=== PATIENT | female | born 1990 | race Caucasian/White ===

== ENCOUNTER 2017-02-24 17:17 | Outpatient (CLI) | payer OTHER ==
[~2017-02-24] VITALS: Ht 152.4 cm; Wt 70.2 kg
[~2017-02-24 17:17] MED LIST: PREN1TAB62 PO
[2017-02-24 17:34] VITALS: Ht 152.4 cm; Wt 70.2 kg
[2017-02-24 17:35] VITALS: BP 121/67; PULSE 81; RESP 18
--- NOTE | 2017-02-24 18:41 | RADRPT ---
PROCEDURE: OB ultrasound CLINICAL INDICATION: Decreased movement TECHNIQUE: Multiple transverse and longitudinal OB images of the pelvis were obtained. The images were reviewed on a high-resolution PACS workstation. COMPARISON: None FINDINGS: A single live intrauterine is seen. The presentation is vertex. The placenta is grade 1 a nd fundal in location. No evidence of placenta abruption or previa is seen. The heart rate is 165 beats per minute. The amniotic fluid index is 20.5 cm. movement 2 tone 2 breathing 2 Amniotic fluid 2 IMPRESSION: Biophysical profile of 12/30. RPTAT: HPNM Physician Torey Date Time Electronically viewed and signed by Physician Torey on 02/24/2017 18:41 /
--- NOTE | 2017-02-24 20:09 | TRIAGE ---
OB Triage Datetime Report Generated by CPN: 02/24/2017 20:09 Datetime: 02/24/2017 18:23 Heart Rate FHR Baseline Rate: 135 Monitor Mode: External US Variability: Moderate 6-25 bpm Accelerations: 15X15 Decelerations: None Category: Category I Datetime: 02/24/2017 17:39 Assessment Type: Triage Maternal Assessment Level of Consciousness: Fully Conscious DTR's/Clonus: DTRs 2+; No Clonus Headache: Denies Blurred Vision: No Respiratory Effort: Unlabored; Regular Rhythm; Equal Expansion Breath Sounds, Left: Clear and Equal Breath Sounds, Right: Clear and Equal Nausea/Vomiting: Denies RUQ Epigastric Pain: Denies Lower Extremities Edema: None Degree: None Upper Extremities Edema: None Degree: None Facial Edema: None Fall Risk Assessment History of Falling: (0) No Secondary Diagnosis: (0) No Ambulatory Aid: (0) Bedrest/Nurse Assist IV Therapy: (0) No Gait: (0) Normal/Bedrest/Immobile Mental Status: (0) Oriented to Own Ability Fall Score: 0 Fall Risk Score Definition: No Risk: No action required Datetime: 02/24/2017 17:37 Time of Arrival: 02/24/2017 17:10 EGA: 32.1 Arrived By: Ambulatory Arrived From: Home Chief Complaint: DECREASED MOVEMRNT Movement: Present Contractions: Denies/Absent Rupture of Membranes: Denies Vaginal Bleeding: None Vaginal Discharge: Denies Recent Sexual Intercouse: Denies Abdominal Trauma: Not Applicable Patient Complaints: None Time Provider Notified: 02/24/2017 18:05 Provider Notified: DR. DEL CID Initial Plan: SIENAT, DONTE
--- NOTE | 2017-02-25 09:29 | CONS ---
Date/Time of Note Date/Time of Note DATE: 02/25/17 TIME: 09:07 Consultation Date/Type/Reason Admit Date/Time Ob triage consult. This patient is a 26 yol with estimated date of confinement on 04/20/2017 , which makes her 32 weeks . Came to Ob high complaining of low movements for few hours. On examination she is a well developed ,well nourished patient Her general vital signs are basically WNL with blood presser of 121/67, pulse rate of 81, respiration rate of 18,and temperature of 98.7. Abdomen is soft very few contractions. heart tone is normal with good vzribility and occasional acceleration, no decells. Constitutional: No chills, No diaphoresis, No disoriented, No febrile, No improved, No no complaints, No other, No poor po, No requiring IVF, No requiring O2 Eyes: No discharge, No no complaints, No other, No pain, No redness, No visual change ENT: No bleeding, No congestion, No discharge, No dysphagia, No no complaints, No other, No pain, No sore throat Respiratory: No cough, No no complaints, No other, No pain, No pleuritic pain, No shortness of breath, No sputum, No wheezing Cardiovascular: No chest pain, No edema, No lightheadedness, No no complaints, No orthopenea, No other, No palpitations, No paroxysmal nocturnal dyspnea Gastrointestinal: No blood, No constipation, No decreased appetite, No diarrhea , No flatus, No nausea, No no complaints, No other, No pain, No passing stool, No vomiting Genitourinary: other (pelvic exam was not performed dut to the fact that she was not in labor.), No bleeding, No discharge, No dysuria, No flank pain, No hematuria, No no complaints Musculoskeletal: No back pain, No bone/joint pain, No neck pain, No no complaints, No other, No restricted range of motion, No swelling Skin: No bruising, No erythema, No laceration, No no complaints, No other, No pruritis, No rash, No skin lesions Neurologic: No confusion, No dizziness, No focal-weakness, No headache, No no complaints, No other, No seizure, No syncope Immunologic: No immunodeficiency, No no complaints, No other, No pruritis, No rhinitis, No urticaria Additional Comments We did an ultrasound study ; the report was: A single live intrauterine is seen. The presentation is vertex. The placenta is grade 1 and fundal in location. No evidence of placenta abruption or previa is seen. The heart rate is 165 beats per minute. The amniotic fluid index is 20.5 cm. Biophysical profile of 12/30. Disposition: with these normal finding patient was discharged home with recommendation to and do kick count and return to triage in case of vaginal bleeding ,labor or low movements. Exam/Review of Systems Vital Signs Vitals Vital Signs Date Time Temp Pulse Resp B/P Pulse Ox O2 Delivery O2 Flow Rate FiO2 02/24/17 17:35 98.7 81 18 121/67 SULMA TRIPP MD Feb 25, 2017 09:21
== END 2017-02-24 19:33 | disposition home or self-care (01) ==
LOC: OBT 17:17 → L-D 17:18 → OBT 19:33
PROVIDERS: ATTEND Obstetrics & Gynecology
DX: O36.8130 Decreased fetal movements, third trimester, not applicable or unspecified (principal); Z3A.32 32 weeks gestation of pregnancy
CPT/HCPCS: 76818; Z7500; G0463

== ENCOUNTER 2017-03-03 14:14 | Outpatient (CLI) | payer OTHER ==
[~2017-03-03] VITALS: Ht 152.4 cm; Wt 70.1 kg
[2017-03-03 14:29] VITALS: BP 114/54; PULSE 102; Ht 152.4 cm; Wt 70.1 kg
--- NOTE | 2017-03-03 15:04 | RADRPT ---
PROCEDURE: US OB biophysical profile. CLINICAL INDICATION: Decreased movements. Gestational diabetes. TECHNIQUE: Multiple sonographic images of the pelvis were obtained. The images were reviewed on a PACS workstation. COMPARISON: 02/24/2017 FINDINGS: There is a viable intrauterine gestation. There is a normal amount of amniotic fluid with an JESSIE = 16.4 cm. Cardiac activity is present with 144 beats per minute. The placenta is fundal. No evidence of placenta previa or abruption. Biophysical profile: movement 2/2 tone 2/2. breathing 2/2 JESSIE 2/2 Total 12/30 IMPRESSION: Normal biophysical profile. Estimated gestational age: 33 weeks and 1 day RPTAT:AAJJ Physician Bev Date Time Electronically viewed and signed by Physician Bev on 03/03/2017 15:03 /
--- NOTE | 2017-03-03 16:23 | CONS ---
Date/Time of Note Date/Time of Note DATE: 03/03/17 TIME: 16:18 Consultation Date/Type/Reason Admit Date/Time March 03, 2017 OB triage consult This patient is a 26 years old 2 para 1 with estimated date of confinement of 04/20/2017 which makes her 33 weeks and 1 day today. She developed gestational diabetes mellitus during this and came in complaining of low movement . She came here for monitoring of her baby's condition On general examination her vital signs appears to be within normal limits with blood pressure 114/54, pulse rate of 102, respiration 18 temperature 98.8,,. Her abdomen is soft ,very rare contractions fetus appears to be in vertex presentation, heart tone is normal. The tracing is reactive with good reactivity and accelerations no decelerations. Laboratory Tests Test 03/03/17 15:20 Bedside Glucose 96mg/dL Constitutional: No chills, No diaphoresis, No disoriented, No febrile, No improved, No no complaints, No other, No poor po, No requiring IVF, No requiring O2 Eyes: No discharge, No no complaints, No other, No pain, No redness, No visual change ENT: No bleeding, No congestion, No discharge, No dysphagia, No no complaints, No other, No pain, No sore throat Respiratory: No cough, No no complaints, No other, No pain, No pleuritic pain, No shortness of breath, No sputum, No wheezing Cardiovascular: No chest pain, No edema, No lightheadedness, No no complaints, No orthopenea, No other, No palpitations, No paroxysmal nocturnal dyspnea Gastrointestinal: No blood, No constipation, No decreased appetite, No diarrhea , No flatus, No nausea, No no complaints, No other, No pain, No passing stool, No vomiting Genitourinary: other (Pelvic exam was not performed due to the fact that she did not have any contractions), No bleeding, No discharge, No dysuria, No flank pain, No hematuria, No no complaints Musculoskeletal: No back pain, No bone/joint pain, No neck pain, No no complaints, No other, No restricted range of motion, No swelling Skin: No bruising, No erythema, No laceration, No no complaints, No other, No pruritis, No rash, No skin lesions Neurologic: No confusion, No dizziness, No focal-weakness, No headache, No no complaints, No other, No seizure, No syncope Endocrine: No dry skin, No no complaints, No other, No polydypsia, No polyuria , No temp intolerance Additional Comments On further study we did a ultrasound .the report was a viable intrauterine gestation of about 33 weeks and 1 day in vertex presentation heart tones 1 44 bpm ,there was no evidence of placenta previa. Her amniotic index was reported 16.4 cm. Biophysical profile 12/30. With this positive finding patient was discharged home with instruction to do the kick count and to return to OB triage next week for further monitoring. End of dictation Social History Smoking Status: Never smoker Exam/Review of Systems Vital Signs Vitals Vital Signs Date Time Temp Pulse Resp B/P Pulse Ox O2 Delivery O2 Flow Rate FiO2 03/03/17 14:29 98.8 102 114/54 Results Results 24 hrs Laboratory Tests Test 03/03/17 15:20 Bedside Glucose 96 SULMA TRIPP MD Mar 03, 2017 16:23
--- NOTE | 2017-03-03 16:23 | TRIAGE ---
OB Triage Datetime Report Generated by CPN: 03/03/2017 16:23 Datetime: 03/03/2017 16:02 Stage of : OB Triage Datetime: 03/03/2017 15:43 Stage of : OB Triage Datetime: 03/03/2017 15:34 Stage of : OB Triage Datetime: 03/03/2017 15:33 Labor Evaluation Frequency: x1 Monitor Mode: External Duration (sec)2399: 50 Quality: Mild Pattern: Normal: <= 5 Contractions in 10 Minutes Resting Tone [place]: Relaxed Heart Rate FHR Baseline Rate: 135 Monitor Mode: External US Variability: Moderate 6-25 bpm Accelerations: 10X10 Decelerations: None Category: Category I Pain Assessment Pain Scale: 0 Pain Presence: None/Denies Pain Type: N/A Pain Goal: 3 Pain Relief Measures: Comfort Measures Datetime: 03/03/2017 15:21 Stage of : OB Triage Datetime: 03/03/2017 14:26 Stage of : OB Triage Assessment Type: Triage Maternal Assessment Level of Consciousness: Fully Conscious DTR's/Clonus: DTRs 2+; No Clonus Headache: Denies Blurred Vision: No Respiratory Effort: Unlabored; Regular Rhythm; Equal Expansion Breath Sounds, Left: Clear and Equal Breath Sounds, Right: Clear and Equal Nausea/Vomiting: Denies RUQ Epigastric Pain: Denies Facial Edema: None Temperature Route: Axillary Fall Risk Assessment History of Falling: (0) No Secondary Diagnosis: (0) No Ambulatory Aid: (0) Bedrest/Nurse Assist IV Therapy: (0) No Gait: (0) Normal/Bedrest/Immobile Mental Status: (0) Oriented to Own Ability Fall Score: 0 Fall Risk Score Definition: No Risk: No action required Monitor Mode: External Duration (sec)2399: 0 Pattern: Normal: <= 5 Contractions in 10 Minutes Resting Tone [place]: Relaxed Heart Rate FHR Baseline Rate: 145 Monitor Mode: External US Variability: Moderate 6-25 bpm Decelerations: None Pain Assessment Pain Scale: 0 Pain Presence: None/Denies Pain Type: N/A Pain Goal: 3 Pain Relief Measures: Comfort Measures Datetime: 03/03/2017 14:25 Time of Arrival: 03/03/2017 14:15 EGA: 33.1 Arrived By: Ambulatory Arrived From: Home Chief Complaint: F/U NST/BPP FOR GDM/DFM, DENIES LEAKING OF FLUID, BLEEDING OR UC'S Movement: Present Contractions: Denies/Absent Rupture of Membranes: Denies Vaginal Bleeding: None Vaginal Discharge: Denies Recent Sexual Intercouse: Denies Abdominal Trauma: Not Applicable Patient Complaints: None Time Provider Notified: 03/03/2017 15:43 Provider Notified: [email or web address] Initial Plan: MONITOR, NST/BPP Datetime: 02/24/2017 19:09 Stage of : OB Triage Datetime: 02/24/2017 17:39 Fall Score: 0 Fall Risk Score Definition: No Risk: No action required Datetime: 02/24/2017 17:37 EGA: 32.1
== END 2017-03-03 16:15 | disposition home or self-care (01) ==
LOC: L-D 14:14 → OBT 14:14
PROVIDERS: ATTEND Obstetrics & Gynecology
DX: O36.8130 Decreased fetal movements, third trimester, not applicable or unspecified (principal); O24.419 Gestational diabetes mellitus in pregnancy, unspecified control; Z3A.33 33 weeks gestation of pregnancy
CPT/HCPCS: 76818; 82962; Z7500; G0463

== ENCOUNTER 2017-03-16 14:16 | Outpatient (CLI) | payer OTHER ==
[~2017-03-16] VITALS: Ht 152.4 cm; Wt 72.3 kg
[2017-03-16 14:30] VITALS: Ht 152.4 cm; Wt 72.3 kg
[2017-03-16 14:31] VITALS: BP 100/56; RESP 16
--- NOTE | 2017-03-16 15:08 | RADRPT ---
PROCEDURE: US OB biophysical profile. CLINICAL INDICATION: evaluation TECHNIQUE: Multiple sonographic images of the pelvis were obtained. The images were reviewed on a PACS workstation. COMPARISON: Obstetrical ultrasound from 03/09/2017 FINDINGS: There is a single viable intrauterine gestation. Cardiac activity is present with 136 beats per min raúl. There is a vertex presentation. The placenta is fundal. There is no evidence of placental abruption. There is a low - normal amount of amniotic fluid with an JESSIE = 8.6 cm. Biophysical profile: movement 2/2 tone 2/2. breathing 2/2 JESSIE 2/2 Total 12/30 RPTAT: AA . IMPRESSION: Normal biophysical profile. Low - normal JESSIE of 8.6 cm, compared with an JESSIE of 10.9 cm previously. Physician Martín Date Time Electronically viewed and signed by Physician Martín on 03/16/2017 15:08 /
--- NOTE | 2017-03-16 18:19 | QN ---
Documentation Comment iup 36 weeks gdm vss nst reactive a/p iup 36 weeks gdm [facility] DEBRA ORTEGA MD Mar 16, 2017 18:19
== END 2017-03-16 16:50 | disposition home or self-care (01) ==
LOC: OBT 14:16 → L-D 14:16 → OBT 16:50
PROVIDERS: ATTEND Obstetrics & Gynecology
DX: O24.419 Gestational diabetes mellitus in pregnancy, unspecified control (principal); Z3A.36 36 weeks gestation of pregnancy
CPT/HCPCS: 76818; G0463

== ENCOUNTER 2017-03-23 14:39 | Outpatient (CLI) | payer OTHER ==
--- NOTE | 2017-03-23 15:23 | RADRPT ---
PROCEDURE: US OB biophysical profile. CLINICAL INDICATION: decreased movements TECHNIQUE: Multiple sonographic images of the pelvis were obtained. The images were reviewed on a PACS workstation. COMPARISON: US PELVIS 03/16/2017 FINDINGS: There is a single viable intrauterine gestation. Cardiac activity is present with 135 beats per min raúl. There is a vertex presentation. The placenta is fundal. There is no evidence of placental abruption. There is a normal amount of amniotic fluid with an JESSIE = 9.0 cm. Biophysical profile: movement 2/2 tone 2/2. breathing 2/2 JESISE 2/2 Total 12/30 RPTAT: AA . IMPRESSION: Normal biophysical profile. . .Solomon Carl MD, MD Date Time Electronically viewed and signed by .Solomon Carl MD, MD on 03/23/2017 15:23 .S/
--- NOTE | 2017-03-23 16:02 | TRIAGE ---
OB Triage Datetime Report Generated by CPN: 03/23/2017 16:02 Datetime: 03/23/2017 15:38 Stage of : OB Triage Datetime: 03/23/2017 15:34 Stage of : OB Triage Datetime: 03/23/2017 15:29 Stage of : OB Triage Datetime: 03/23/2017 15:16 Stage of : OB Triage Assessment Type: Triage Maternal Assessment Level of Consciousness: Fully Conscious DTR's/Clonus: DTRs 2+; No Clonus Headache: Denies Blurred Vision: No Respiratory Effort: Unlabored; Regular Rhythm; Equal Expansion Breath Sounds, Left: Clear and Equal Breath Sounds, Right: Clear and Equal Nausea/Vomiting: Denies RUQ Epigastric Pain: Denies Facial Edema: None Temperature Route: Axillary Fall Risk Assessment History of Falling: (0) No Secondary Diagnosis: (0) No Ambulatory Aid: (0) Bedrest/Nurse Assist IV Therapy: (0) No Gait: (0) Normal/Bedrest/Immobile Mental Status: (0) Oriented to Own Ability Fall Score: 0 Fall Risk Score Definition: No Risk: No action required Labor Evaluation Frequency: X1 Monitor Mode: External Duration (sec)2399: 50 Quality: Mild Pattern: Normal: <= 5 Contractions in 10 Minutes Resting Tone [place]: Relaxed Heart Rate FHR Baseline Rate: 135 Monitor Mode: External US Variability: Moderate 6-25 bpm Accelerations: 10X10 Decelerations: None Pain Assessment Pain Scale: 0 Pain Presence: None/Denies Pain Type: N/A Pain Goal: 3 Pain Relief Measures: Comfort Measures Datetime: 03/23/2017 14:54 Time of Arrival: 03/23/2017 14:30 EGA: 36.0 Arrived By: Ambulatory Chief Complaint: F/U NST FOR GDM Movement: Present Contractions: Denies/Absent Rupture of Membranes: Denies Vaginal Bleeding: None Vaginal Discharge: Denies Recent Sexual Intercouse: Denies Abdominal Trauma: Not Applicable Patient Complaints: None Time Provider Notified: 03/23/2017 15:38 Provider Notified: shamsian Initial Plan: MONITOR, BPP/JESSIE Datetime: 03/16/2017 15:30 Labor Evaluation Frequency: X1 Duration (sec)2399: 30-60 Pattern: Normal: <= 5 Contractions in 10 Minutes Resting Tone [place]: Relaxed Heart Rate FHR Baseline Rate: 135 Monitor Mode: External US Variability: Moderate 6-25 bpm Accelerations: 15X15 Decelerations: None Category: Category I Vaginal Exam Membrane Status: Intact Datetime: 03/16/2017 15:04 Comments: BACK ON MONITOR AFTER US Datetime: 03/16/2017 14:44 Comments: US AT BEDSIDE Datetime: 03/16/2017 14:36 Stage of : OB Triage Assessment Type: Triage Maternal Assessment Level of Consciousness: Fully Conscious DTR's/Clonus: DTRs 2+; No Clonus Headache: Denies Blurred Vision: No Respiratory Effort: Unlabored; Regular Rhythm; Equal Expansion Breath Sounds, Left: Clear and Equal Breath Sounds, Right: Clear and Equal Nausea/Vomiting: Denies RUQ Epigastric Pain: Denies Lower Extremities Edema: None Degree: None Upper Extremities Edema: None Degree: None Facial Edema: None Temperature Route: Oral Fall Risk Assessment History of Falling: (0) No Secondary Diagnosis: (0) No Ambulatory Aid: (0) Bedrest/Nurse Assist IV Therapy: (0) No Gait: (0) Normal/Bedrest/Immobile Mental Status: (0) Oriented to Own Ability Fall Score: 0 Fall Risk Score Definition: No Risk: No action required Labor Evaluation Frequency: 0 Monitor Mode: External Heart Rate FHR Baseline Rate: 145 Monitor Mode: External US Variability: Moderate 6-25 bpm Accelerations: 15X15 Pain Assessment Pain Scale: 0 Pain Presence: None/Denies Pain Type: N/A Datetime: 03/16/2017 14:35 Time of Arrival: 03/16/2017 14:10 EGA: 35.0 Arrived By: Ambulatory Arrived From: Dr. Gomez Chief Complaint: SENT FROM CLINIC FOR NST/ BPP FOR GDM Movement: Present Contractions: Denies/Absent Rupture of Membranes: Denies Vaginal Bleeding: None Vaginal Discharge: Denies Recent Sexual Intercouse: Denies Abdominal Trauma: Not Applicable Patient Complaints: None Time Provider Notified: 03/16/2017 16:00 Provider Notified: ROXANNA DEL CID Initial Plan: NST/ BPP Datetime: 03/09/2017 14:28 Fall Score: 0 Fall Risk Score Definition: No Risk: No action required Datetime: 03/09/2017 14:24 EGA: 34.0 Datetime: 03/03/2017 14:26 Fall Score: 0 Fall Risk Score Definition: No Risk: No action required Datetime: 03/03/2017 14:25 EGA: 33.1 Datetime: 02/24/2017 17:39 Fall Score: 0 Fall Risk Score Definition: No Risk: No action required Datetime: 02/24/2017 17:37 EGA: 32.1
--- NOTE | 2017-03-23 18:27 | QN ---
Documentation Comment iup 36 weeks gdm vss exam wnl us wnl a/p uip 36 weeks dc home gdm DEBRA ORTEGA MD Mar 23, 2017 18:27
== END 2017-03-23 15:50 | disposition home or self-care (01) ==
LOC: OBT 14:39 → L-D 14:39 → OBT 15:50
PROVIDERS: ATTEND Obstetrics & Gynecology
DX: O24.419 Gestational diabetes mellitus in pregnancy, unspecified control (principal); Z3A.36 36 weeks gestation of pregnancy
CPT/HCPCS: 76818; 82962; Z7500; G0463

== ENCOUNTER 2017-03-26 12:51 | Outpatient (CLI) | payer OTHER ==
[~2017-03-26] VITALS: Ht 152.4 cm; Wt 71.3 kg
[2017-03-26 12:58] VITALS: BP 106/60; PULSE 18; RESP 18
[2017-03-26] MEDS ORDERED: FER325 PO (13:02)
[2017-03-26 13:19] VITALS: Ht 152.4 cm; Wt 71.3 kg
--- NOTE | 2017-03-26 13:45 | RADRPT ---
PROCEDURE: OB ultrasound for biophysical profile CLINICAL INDICATION: evaluation. TECHNIQUE: Multiple sonographic images of the pelvis were obtained. Transabdominal view of the gr avid uterus are available for review. The images were reviewed on a PACS workstation. COMPARISON: 03/23/2017. FINDINGS: breathing movement = 2/2 tone = 2/2 motion = 2/2 Quantitative amniotic fluid volume = 2/2 JESSIE = 13.0 cm Single live intrauterine with cardiac activity at 137 beats per minute. There is a left lateral placenta without previa or abruption. IMPRESSION: 1. Single living intrauterine gestation in cephalic position. 2. Biophysical profile = 8/8. 3. JESSIE = 13.0 cm. RPTAT: AACC Physician Nolan Date Time Electronically viewed and signed by Physician Nolan on 03/26/2017 13:44 /
--- NOTE | 2017-03-26 14:36 | TRIAGE ---
OB Triage Datetime Report Generated by CPN: 03/26/2017 14:36 Datetime: 03/26/2017 14:29 Labor Evaluation Frequency: X2 Monitor Mode: External Duration (sec)2399: 90-120 Pattern: Normal: <= 5 Contractions in 10 Minutes Resting Tone [place]: Relaxed Contraction Comments: PT. DENIES FEELING UC'S Heart Rate FHR Baseline Rate: 140 Monitor Mode: External US Variability: Moderate 6-25 bpm Accelerations: 15X15 Decelerations: None Category: Category I Pain Assessment Pain Presence: None/Denies Datetime: 03/26/2017 14:03 Pain Assessment Pain Presence: None/Denies Datetime: 03/26/2017 13:27 Labor Evaluation Frequency: 3-4 Monitor Mode: External Duration (sec)2399: 50-80 Pattern: Normal: <= 5 Contractions in 10 Minutes Resting Tone [place]: Relaxed Heart Rate FHR Baseline Rate: 140 Monitor Mode: External US Variability: Moderate 6-25 bpm Accelerations: 15X15 Decelerations: None Category: Category I Datetime: 03/26/2017 13:11 Assessment Type: Admission Assessment Maternal Assessment Level of Consciousness: Fully Conscious DTR's/Clonus: DTRs 2+; No Clonus Headache: Denies Blurred Vision: No Respiratory Effort: Unlabored; Regular Rhythm; Equal Expansion Breath Sounds, Left: Clear and Equal Breath Sounds, Right: Clear and Equal Nausea/Vomiting: Denies RUQ Epigastric Pain: Denies Lower Extremities Edema: None Degree: None Upper Extremities Edema: None Degree: None Facial Edema: None Fall Risk Assessment History of Falling: (0) No Secondary Diagnosis: (0) No Ambulatory Aid: (0) Bedrest/Nurse Assist IV Therapy: (0) No Gait: (0) Normal/Bedrest/Immobile Mental Status: (0) Oriented to Own Ability Fall Score: 0 Fall Risk Score Definition: No Risk: No action required Datetime: 03/26/2017 13:04 Time of Arrival: 03/26/2017 12:44 EGA: 36.3 Arrived By: Ambulatory Arrived From: Home Chief Complaint: NST/BPP FOR AIDM Movement: Present Contractions: Denies/Absent Rupture of Membranes: Denies Vaginal Bleeding: None Vaginal Discharge: Denies Recent Sexual Intercouse: Denies Abdominal Trauma: Not Applicable Patient Complaints: None Time Provider Notified: 03/26/2017 13:59 Provider Notified: DR. DEL CID Initial Plan: TOCO/US, BPP Datetime: 03/26/2017 12:53 Pain Assessment Pain Presence: None/Denies Datetime: 03/23/2017 15:16 Fall Score: 0 Fall Risk Score Definition: No Risk: No action required Datetime: 03/23/2017 14:54 EGA: 36.0 Datetime: 03/16/2017 14:36 Fall Score: 0 Fall Risk Score Definition: No Risk: No action required Datetime: 03/16/2017 14:35 EGA: 35.0 Datetime: 03/09/2017 14:28 Fall Score: 0 Fall Risk Score Definition: No Risk: No action required Datetime: 03/09/2017 14:24 EGA: 34.0 Datetime: 03/03/2017 14:26 Fall Score: 0 Fall Risk Score Definition: No Risk: No action required Datetime: 03/03/2017 14:25 EGA: 33.1 Datetime: 02/24/2017 17:39 Fall Score: 0 Fall Risk Score Definition: No Risk: No action required Datetime: 02/24/2017 17:37 EGA: 32.1
--- NOTE | 2017-03-26 14:44 | CONS ---
Date/Time of Note Date/Time of Note DATE: 03/26/17 TIME: 14:37 Consultation Date/Type/Reason Admit Date/Time March 26, 2017 OB triage consult This patient is a 26 years old 2 para 1 with estimated date of confinement of April 20, 2017 which makes her 36 weeks and 3 days now . She came to triage due to A1 gestational diabetes mellitus during this and for monitoring . NST and biophysical profile. On examination she is a well-developed well-nourished patient near- term. Her general vital signs are within normal limit, with blood pressure of 106/60, pulse rate of 96, respiration of 18,, temperature 98.5. On examination her abdomen is soft, extremely rare contraction, heart tone is normal the tracing has good variability and acceleration Constitutional: No chills, No diaphoresis, No disoriented, No febrile, No improved, No no complaints, No other, No poor po, No requiring IVF, No requiring O2 Eyes: No discharge, No no complaints, No other, No pain, No redness, No visual change ENT: No bleeding, No congestion, No discharge, No dysphagia, No no complaints, No other, No pain, No sore throat Respiratory: No cough, No no complaints, No other, No pain, No pleuritic pain, No shortness of breath, No sputum, No wheezing Cardiovascular: No chest pain, No edema, No lightheadedness, No no complaints, No orthopenea, No other, No palpitations, No paroxysmal nocturnal dyspnea Gastrointestinal: other, No blood, No constipation, No decreased appetite, No diarrhea, No flatus, No nausea, No no complaints, No pain, No passing stool, No vomiting Genitourinary: other (Pelvic examination was not performed due to the fact that she did not have any contractions at this time), No bleeding, No discharge, No dysuria, No flank pain, No hematuria, No no complaints Musculoskeletal: No back pain, No bone/joint pain, No neck pain, No no complaints, No other, No restricted range of motion, No swelling Skin: No bruising, No erythema, No laceration, No no complaints, No other, No pruritis, No rash, No skin lesions Neurologic: other (Knee-jerk reflex within normal limits), No confusion, No dizziness, No focal-weakness, No headache, No no complaints , No seizure, No syncope Endocrine: No dry skin, No no complaints, No other, No polydypsia, No polyuria , No temp intolerance Lymphatic: No adenopathy, No lymphadema, No no complaints, No other, No tender nodes Additional Comments On ultrasound study ;the report is single live intrauterine with cardiac activity of 137 bpm lateral placenta vertex presentation biophysical profile was reported 12/30 with amniotic fluid index of 13.0. .The patient was informed of the results of the ultrasound And she was advised to return in about a week based on recommendation of her physician for the repeat of the monitoring studies. Social History Smoking Status: Never smoker Exam/Review of Systems Vital Signs Vitals Vital Signs Date Time Temp Pulse Resp B/P Pulse Ox O2 Delivery O2 Flow Rate FiO2 03/26/17 12:58 98.5 18 18 106/60 Room Air SULMA TRIPP MD Mar 26, 2017 14:44
== END 2017-03-26 14:55 | disposition home or self-care (01) ==
LOC: OBT 12:51 → L-D 12:52 → OBT 14:55
PROVIDERS: ATTEND Obstetrics & Gynecology
DX: O24.419 Gestational diabetes mellitus in pregnancy, unspecified control (principal); Z3A.36 36 weeks gestation of pregnancy
CPT/HCPCS: 76818

== ENCOUNTER 2017-04-02 15:40 | Outpatient (CLI) | payer OTHER ==
[~2017-04-02] VITALS: Ht 152.4 cm; Wt 71.1 kg
[~2017-04-02 15:40] MED LIST changes: +FER325 PO
[2017-04-02 15:54] VITALS: BP 110/65; PULSE 86; RESP 18; Ht 152.4 cm; Wt 71.1 kg
--- NOTE | 2017-04-02 16:48 | RADRPT ---
PROCEDURE: US OB biophysical profile. CLINICAL INDICATION: Decreased movements TECHNIQUE: Multiple sonographic images of the pelvis were obtained. The images were reviewed on a PACS workstation. COMPARISON: 03/26/2017 FINDINGS: There is a viable intrauterine gestation. There is a normal amount of amniotic fluid with an JESSIE = 12.4 cm. Cardiac activity is present with 169 beats per minute. The placenta is fundal. No evidence of placenta previa or abruption. Biophysical profile: movement 2/2 tone 2/2. breathing 2/2 JESSIE 2/2 Total 12/30 IMPRESSION: Normal biophysical profile. Estimated gestational age: 37 weeks and 3 days RPTAT:AAJJ Physician Bev Date Time Electronically viewed and signed by Physician Bev on 04/02/2017 16:48 /
--- NOTE | 2017-04-02 18:22 | CONS ---
Date/Time of Note Date/Time of Note DATE: 04/02/17 TIME: 18:16 Consultation Date/Type/Reason Admit Date/Time .April 02, 2017 OB consult. This patient is a 26 years old 2 para 1 with estimated date of confinement of April 20, 2017 which makes her 37 weeks and 3 days now. She has gestational diabetes mellitus and came here on a follow-up for monitoring and evaluation of this . On examination today her general vital signs are normal with blood pressure 110/ 65, pulse rate of 86, respirations 17, and temperature 97.5. 24 HR Interval Summary Free Text/Dictation . 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 End of dictation Exam/Review of Systems Vital Signs Vitals Vital Signs Date Time Temp Pulse Resp B/P Pulse Ox O2 Delivery O2 Flow Rate FiO2 04/02/17 15:54 97.5 86 18 110/65 Room Air SULMA TRIPP MD Apr 02, 2017 18:22
--- NOTE | 2017-04-02 18:30 | TRIAGE ---
OB Triage Datetime Report Generated by CPN: 04/02/2017 18:30 Datetime: 04/02/2017 17:04 Stage of : OB Triage Datetime: 04/02/2017 16:59 Labor Evaluation Frequency: occ Monitor Mode: External Duration (sec)2399: 60 Quality: Mild Pattern: Normal: <= 5 Contractions in 10 Minutes Resting Tone [place]: Relaxed Heart Rate FHR Baseline Rate: 140 Monitor Mode: External US Variability: Moderate 6-25 bpm Accelerations: 15X15 Decelerations: None Pain Assessment Pain Scale: 0 Pain Presence: None/Denies Pain Type: N/A Datetime: 04/02/2017 16:14 Labor Evaluation Frequency: 70-80 Monitor Mode: External Quality: Mild Pattern: Normal: <= 5 Contractions in 10 Minutes Resting Tone [place]: Relaxed Heart Rate FHR Baseline Rate: 140 Monitor Mode: External US Pain Assessment Pain Scale: 0 Pain Presence: None/Denies Pain Type: N/A Datetime: 04/02/2017 15:55 Assessment Type: Triage Maternal Assessment Level of Consciousness: Fully Conscious DTR's/Clonus: DTRs 2+; No Clonus Headache: Denies Blurred Vision: No Respiratory Effort: Unlabored; Regular Rhythm; Equal Expansion Breath Sounds, Left: Clear and Equal Breath Sounds, Right: Clear and Equal Nausea/Vomiting: Denies RUQ Epigastric Pain: Denies Lower Extremities Edema: None Degree: None Upper Extremities Edema: None Degree: None Facial Edema: None Fall Risk Assessment History of Falling: (0) No Secondary Diagnosis: (0) No Ambulatory Aid: (0) Bedrest/Nurse Assist IV Therapy: (0) No Gait: (0) Normal/Bedrest/Immobile Mental Status: (0) Oriented to Own Ability Fall Score: 0 Fall Risk Score Definition: No Risk: No action required Datetime: 04/02/2017 15:42 Time of Arrival: 04/02/2017 15:30 EGA: 37.3 Arrived By: Ambulatory Arrived From: Home Movement: Present Contractions: Denies/Absent Rupture of Membranes: Denies Vaginal Bleeding: None Vaginal Discharge: Denies Recent Sexual Intercouse: Denies Abdominal Trauma: Not Applicable Patient Complaints: None Time Provider Notified: 04/02/2017 17:02 Provider Notified: ABUSLEME Initial Plan: NST/BPP Datetime: 03/26/2017 13:11 Fall Score: 0 Fall Risk Score Definition: No Risk: No action required Datetime: 03/26/2017 13:04 EGA: 36.3 Datetime: 03/23/2017 15:16 Fall Score: 0 Fall Risk Score Definition: No Risk: No action required Datetime: 03/23/2017 14:54 EGA: 36.0 Datetime: 03/16/2017 14:36 Fall Score: 0 Fall Risk Score Definition: No Risk: No action required Datetime: 03/16/2017 14:35 EGA: 35.0 Datetime: 03/09/2017 14:28 Fall Score: 0 Fall Risk Score Definition: No Risk: No action required Datetime: 03/09/2017 14:24 EGA: 34.0 Datetime: 03/03/2017 14:26 Fall Score: 0 Fall Risk Score Definition: No Risk: No action required Datetime: 03/03/2017 14:25 EGA: 33.1 Datetime: 02/24/2017 17:39 Fall Score: 0 Fall Risk Score Definition: No Risk: No action required Datetime: 02/24/2017 17:37 EGA: 32.1
== END 2017-04-02 18:00 | disposition home or self-care (01) ==
LOC: L-D 15:40 → OBT 15:40
PROVIDERS: ATTEND Obstetrics & Gynecology
DX: O24.419 Gestational diabetes mellitus in pregnancy, unspecified control (principal); Z3A.37 37 weeks gestation of pregnancy
CPT/HCPCS: 76818; Z7500; G0463

== ENCOUNTER 2017-04-09 09:19 | Outpatient (CLI) | payer OTHER ==
[~2017-04-09] VITALS: Ht 152.4 cm; Wt 71.0 kg
[2017-04-09 09:36] VITALS: Ht 152.4 cm; Wt 71.0 kg
[2017-04-09 09:37] VITALS: BP 108/60; PULSE 73; RESP 18
--- NOTE | 2017-04-09 10:31 | RADRPT ---
PROCEDURE: US OB biophysical profile. CLINICAL INDICATION: decreased movements, GD TECHNIQUE: Multiple sonographic images of the pelvis were obtained. The images were reviewed on a PACS workstation. COMPARISON: 04/02/17 FINDINGS: There is a single viable intrauterine gestation. Cardiac activity is present with 142 beats per min [place]. There is a vertex presentation. The placenta is fundal left. There is no evidence of placental abruption. There is a normal amount of amniotic fluid with an JESSIE = 13.7 cm. Biophysical profile: movement 2/2 tone 2/2. breathing 2/2 JESSIE 2/2 Total 12/30 RPTAT: AA . IMPRESSION: Normal biophysical profile. . .Solomon Carl MD, MD Date Time Electronically viewed and signed by .Solomon Carl MD, MD on 04/09/2017 10:30 .S/
--- NOTE | 2017-04-09 10:59 | TRIAGE ---
OB Triage Datetime Report Generated by CPN: 04/09/2017 10:59 Datetime: 04/09/2017 09:49 Stage of : OB Triage Maternal Assessment Level of Consciousness: Fully Conscious Labor Evaluation Frequency: 2UC Monitor Mode: External Duration (sec)2399: 50-90 Quality: Mild Resting Tone [place]: Relaxed Heart Rate FHR Baseline Rate: 145 Monitor Mode: External US Variability: Moderate 6-25 bpm Accelerations: 15X15 Decelerations: None Category: Category I Pain Assessment Pain Scale: 0 Pain Goal: 3 Vaginal Exam Membrane Status: Intact Vaginal Bleeding: None Datetime: 04/09/2017 09:48 Bedside Blood Glucose: 89 Datetime: 04/09/2017 09:33 Assessment Type: Triage Maternal Assessment Level of Consciousness: Fully Conscious DTR's/Clonus: DTRs 2+; No Clonus Headache: Denies Blurred Vision: No Respiratory Effort: Unlabored; Regular Rhythm; Equal Expansion Breath Sounds, Left: Clear and Equal Breath Sounds, Right: Clear and Equal Nausea/Vomiting: Denies RUQ Epigastric Pain: Denies Lower Extremities Edema: None Degree: None Upper Extremities Edema: None Degree: None Facial Edema: None Fall Risk Assessment History of Falling: (0) No Secondary Diagnosis: (0) No Ambulatory Aid: (0) Bedrest/Nurse Assist IV Therapy: (0) No Gait: (0) Normal/Bedrest/Immobile Mental Status: (0) Oriented to Own Ability Fall Score: 0 Fall Risk Score Definition: No Risk: No action required Datetime: 04/09/2017 09:32 Time of Arrival: 04/09/2017 09:17 EGA: 38.3 Arrived By: Ambulatory Arrived From: Home Chief Complaint: PT HERE FOR NST/BPP FOR A1DM Movement: Present Contractions: Denies/Absent Rupture of Membranes: Denies Vaginal Bleeding: None Vaginal Discharge: Denies Recent Sexual Intercouse: Denies Abdominal Trauma: Not Applicable Patient Complaints: None Time Provider Notified: 04/09/2017 10:50 Provider Notified: ABUSLEME Initial Plan: NST/BPP Datetime: 04/09/2017 09:27 Monitor Mode: External Monitor Mode: External US Datetime: 04/02/2017 17:30 Stage of : OB Triage Datetime: 04/02/2017 15:55 Fall Score: 0 Fall Risk Score Definition: No Risk: No action required Datetime: 04/02/2017 15:42 EGA: 37.3 Datetime: 03/26/2017 13:11 Fall Score: 0 Fall Risk Score Definition: No Risk: No action required Datetime: 03/26/2017 13:04 EGA: 36.3 Datetime: 03/23/2017 15:16 Fall Score: 0 Fall Risk Score Definition: No Risk: No action required Datetime: 03/23/2017 14:54 EGA: 36.0 Datetime: 03/16/2017 14:36 Fall Score: 0 Fall Risk Score Definition: No Risk: No action required Datetime: 03/16/2017 14:35 EGA: 35.0 Datetime: 03/09/2017 14:28 Fall Score: 0 Fall Risk Score Definition: No Risk: No action required Datetime: 03/09/2017 14:24 EGA: 34.0 Datetime: 03/03/2017 14:26 Fall Score: 0 Fall Risk Score Definition: No Risk: No action required Datetime: 03/03/2017 14:25 EGA: 33.1 Datetime: 02/24/2017 17:39 Fall Score: 0 Fall Risk Score Definition: No Risk: No action required Datetime: 02/24/2017 17:37 EGA: 32.1
--- NOTE | 2017-04-09 11:11 | CONS ---
Date/Time of Note Date/Time of Note DATE: 04/09/17 TIME: 11:02 Consultation Date/Type/Reason Admit Date/Time April 09, 2017 OB triage follow-up consult This patient is a 26 years old 2 para 1 with estimated date of confinement of April 20, 2017 which makes her 38 weeks and 3 days now. She has gestational diabetes mellitus and came here on a follow-up for monitoring and evaluation of this . On examination today her general vital signs are normal with blood pressure 108/ 60, pulse rate of 73, respirations 18, and temperature 98. . Under heart rate monitoring tracing is reactive with moderate variability occasional acceleration no evidence of heart decelerations. Abdomen is soft rare contraction. Vertex presentation Initial Consult Date Reason for Consultation Laboratory Tests Test 04/09/17 09:48 Bedside Glucose 89mg/dL 24 HR Interval Summary Free Text/Dictation . On ultrasound study the report is a single viable intrauterine gestation with heart tone of 1 42 bpm in vertex presentation placenta was fundal left and there was no evidence of placental abruption her amniotic fluid index was reported to 13.7 cm her biophysical profile was 8/8 With these normal finding patient was discharged she will be admitted on this coming Thursday for induction of her labor. She was advised to do the kick count at home and return to the triage if any evidence of labor vaginal bleeding or low movement other than that we will see her on Thursday for induction of labor. End of dictation . Exam/Review of Systems Vital Signs Vitals Vital Signs Date Time Temp Pulse Resp B/P Pulse Ox O2 Delivery O2 Flow Rate FiO2 04/09/17 09:37 98.1 73 18 108/60 98 Room Air Results Results 24 hrs Laboratory Tests Test 04/09/17 09:48 Bedside Glucose 89 SULMA TRIPP MD Apr 09, 2017 11:11
== END 2017-04-09 11:05 | disposition home or self-care (01) ==
LOC: OBT 09:19 → L-D 09:19 → OBT 11:05
PROVIDERS: ATTEND Obstetrics & Gynecology
DX: O24.419 Gestational diabetes mellitus in pregnancy, unspecified control (principal); Z3A.38 38 weeks gestation of pregnancy
CPT/HCPCS: 76818; 82962; Z7500; G0463

== ENCOUNTER 2017-04-13 09:30 | Inpatient (IN) | payer OTHER ==
[~2017-04-13] VITALS: Ht 152.4 cm; Wt 71.0 kg
[2017-04-13 10:44] VITALS: Ht 152.4 cm; Wt 71.0 kg
[2017-04-13 10:45] VITALS: BP 119/59
[2017-04-13] MEDS ORDERED: MISOPROSTOL 200 MCG TAB PR PRN (11:00)
[2017-04-13] MEDS ORDERED: LACTATED RINGER'S 1,000 ML IV PRN (11:00)
[2017-04-13] MEDS ORDERED: CARBOPROST 250 MCG INJ IM PRN (11:00)
[2017-04-13] MEDS ORDERED: BUTORPHANOL 2 MG INJ IV PRN (11:00)
[2017-04-13] MEDS ORDERED: AMPICILLIN 2 GM/NS (PMX) 100 ML IV ONE (11:00)
[2017-04-13] MEDS ORDERED: LIDOCAINE 1% (MPF) 30 ML INJ INJ PRN (11:00)
[2017-04-13] MEDS ORDERED: METHYLERGONOVINE 0.2 MG INJ IM PRN (11:00)
[2017-04-13] MEDS ORDERED: OXYTOCIN 30 UNITS/LR 500 ML IV PRN (11:00)
[2017-04-13] MEDS ORDERED: OXYTOCIN 30 UNITS/LR 500 ML IV SCH ×3 (11:00→21:30)
[2017-04-13] MEDS: LACTATED RINGER'S 1,000 ML IV SCH ×2 (11:13→23:18)
[2017-04-13 11:39] LABS: BASOPHILS % 0.3 % (0.0-2.0); EOSINOPHILS # 0.1 10^3/ul (0.0-0.5); EOSINOPHILS % 1.6 % (0.0-7.0); HEMATOCRIT 37.8 % (37.0-47.0); HEMOGLOBIN 12.8 g/dl (12.0-16.0); LYMPHOCYTES # 1.6 10^3/ul (0.8-2.9); LYMPHOCYTES % 21.3 % (15.0-51.0); MEAN CORPUSCULAR HEMOGLOBIN 31.5 pg (29.0-33.0); MEAN CORPUSCULAR HGB CONC 33.9 g/dl (32.0-37.0); MEAN CORPUSCULAR VOLUME 93.1 fl (82.0-101.0); MEAN PLATELET VOLUME 10.8 fl (7.4-10.4); MONOCYTE # 0.5 10^3/ul (0.3-0.9); NEUTROPHIL # 5.1 10^3/ul (1.6-7.5); PLATELET COUNT 243 10^3/UL (140-415); RED BLOOD COUNT 4.06 10^6/ul (4.20-5.40); RED CELL DISTRIBUTION WIDTH 13.4 % (11.5-14.5); WHITE BLOOD COUNT 7.4 10^3/ul (4.8-10.8)
[2017-04-13] MEDS ORDERED: DEXTROSE 5% 1,000 ML IV PRN (12:00)
[2017-04-13] MEDS ORDERED: DINOPROSTONE 10 MG VAG SUPP VAG ONE (12:00)
[2017-04-13 12:13] LABS: INR 1.05; PROTIME 13.7 Sec (12.2-14.2); PT RATIO 1.1
[2017-04-13 12:14] LABS: PARTIAL THROMBOPLASTIN TIME 37.1 Sec (25.0-35.0)
[2017-04-13] MEDS: AMPICILLIN 1 GM/NS (PMX) 50 ML IVPB SCH ×3 (15:43→23:46)
[2017-04-13] MEDS ORDERED: EPHEDrine SULFATE 50 MG/5 ML SYG IV PRN (17:00)
[2017-04-13] MEDS ORDERED: ONDANSETRON 4 MG INJ IV PRN (17:00)
[2017-04-13] MEDS ORDERED: NALOXONE (0.4 MG/ML) INJ IV PRN (17:00)
[2017-04-13] MEDS ORDERED: FENTAnyl 2MCG/ML-ROPIV 0.2% 100 ML BAG EPI SCH (17:00)
[2017-04-13] MEDS ORDERED: DIPHENHYDRAMINE 50 MG INJ IV PRN (17:00)
--- NOTE | 2017-04-13 21:28 | HP ---
Date/Time of Note Date/Time of Note DATE: 04/13/17 TIME: 21:24 OB - History Hx of Present Free Text/Dictation 39 weeks . Gestational diabetes A1 GBS positive Admitted for induction Last Menstrual Period: Jul 14, 2016 Estimated Due Date: Apr 19, 2017 : 2 Para: 1 Care: Good Care Ultrasounds: Normal mid trimester US Obstetrical Complications: Gestational Diabetes Medical Complications: None Past Family/Social History * Past Medical, Surgical, Family and Obstetric Histories reviewed from chart. Blood Type: O+ Rubella: immune RPR/VDRL: Negative GBS Status: Positive HBsAG: Negative OB Admission Exam Vital Signs Vital Signs Vital Signs Date Time Temp Pulse Resp B/P Pulse Ox O2 Delivery O2 Flow Rate FiO2 04/13/17 10:45 98.0 119/59 Physical Exam HEENT: WNL Heart: Rhythm Normal Lungs: Clear, Equal Abdomen: WNL Extremities: Normal Reflexes: Normal Cervical Dilatation: 2cm Effacement: 50% Station: -2 Membranes: Intact Accelerations: Accelerations Present Decelerations: No Decelerations Varibility: Moderate Contractions on Admission: 6-10 Minutes Apart Intensity: Mild Last 72 hourBlood Glucose Bedside Glucose - 72 Hours Test 04/13/17 15:36 04/13/17 19:34 Bedside Glucose 90mg/dL (70-220) 74mg/dL (70-220) Last 72 hours Lab Results CBC & BMP 04/13/17 11:04 OB Assessment/Plan Reason for admission: group B positive strep, induction of labor Induction Method: per Misoprostol Protocol ESTHER DEL CID MD Apr 13, 2017 21:28
[2017-04-14] MEDS ORDERED: OXYTOCIN 30 UNITS/LR 500 ML IV SCH (00:41)
--- NOTE | 2017-04-14 00:41 | LDN ---
Date/Time of Note Date/Time of Note DATE: 04/14/17 TIME: 00:32 Delivery Summary Weeks of Gestation 39 WEEKS GDM A-1 GBS POSITIVE ADMITTED FOR INDUCTION OF LABOR Assisted Vaginal Delivery: Vacuum Placenta Delivered: Spontaneously Meconium: none Episiotomy: No Laceration repair: SMALL PERINEAL ABRASSION REPAIRED Anesthesia type: Epidural Estimated blood loss: 100 Sponge & Needle done & correct: Yes All needle counts correct: Yes Any foreign bodies felt in the: No Problems: Infant Delivery Information Sex Infant Sex: male Apgars 1 Minute: 9 5 Minute: 9 Suctioning Nose & mouth suctioned at sun: Yes Umbilical Cord Umbilical cord with: 3 Vessels Cord presentations: no nuchal cord Cord Blood was obtained: Yes Mother & Baby Disposition Disposition Mom & Baby to Maternity; Good: Yes ESTHER DEL CID MD Apr 14, 2017 00:41
[2017-04-14] MEDS ORDERED: MISOPROSTOL 200 MCG TAB PR PRN (01:00)
[2017-04-14] MEDS ORDERED: BENZOCAINE 20% 56 ML SPRAY TOP PRN (01:00)
[2017-04-14] MEDS ORDERED: LANOLIN 7 GM TUBE TOP PRN (01:00)
[2017-04-14] MEDS ORDERED: DIPHENHYDRAMINE 25 MG CAP PO PRN (01:00)
[2017-04-14] MEDS ORDERED: OXYTOCIN 30 UNITS/LR 500 ML IV PRN (01:00)
[2017-04-14] MEDS ORDERED: CARBOPROST 250 MCG INJ IM PRN (01:00)
[2017-04-14] MEDS ORDERED: ONDANSETRON 4 MG INJ IV PRN (01:00)
[2017-04-14] MEDS ORDERED: ACETAMINOPHEN 325 MG TAB PO PRN ×2 (01:00)
[2017-04-14] MEDS ORDERED: DIBUCAINE 1% 30 GM OINT PR PRN (01:00)
[2017-04-14] MEDS ORDERED: METHYLERGONOVINE 0.2 MG INJ IM PRN (01:00)
[2017-04-14] MEDS ORDERED: HYDROCODONE/APAP (5/325) TAB PO PRN ×2 (01:00)
--- NOTE | 2017-04-14 01:31 | DELSUM ---
Delivery Summary A-C Datetime Report Generated by CPN: 04/14/2017 01:31 DELIVERY PERSONNEL Cafe Lead: Wheeler, Parul MATERNAL INFORMATION Delivery Anesthesia: Epidural Medications in Delivery: 30 UNIT PITOCIN Estimated Blood Loss (ml): 200 Placenta Cultured: Yes Maternal Complications: Other Other Maternal Complications: GDM-DIET CONTROLLED LABOR SUMMARY EDC: 04/20/2017 00:00 No. Babies in Womb: 1 Attempted: No Labor Anesthesia: Epidural LABOR INFORMATION Reason for Induction: Other Onset of Labor: 04/13/2017 14:00 Complete Dilatation: 04/13/2017 23:47 Cervical Ripening Agents: Cervidil Cervical Ripening Agents: Cervidil Other Ripening Agents: CERVIDIL Oxytocin: Augmentation Group B Beta Strep: Positive Group B Beta Strep: Positive Antibiotics # of Doses: 4 Antibiotics Time of Last Dose: 04/13/2017 23:46 Steroids Given: None Reason Steroids Not Administered: Not Applicable MEMBRANES Membranes Rupture Method: Artificial Rupture of Membranes: 04/13/2017 20:01 Length of Rupture (hr): 4.12 Amniotic Fluid Color: Clear Amniotic Fluid Amount: Moderate Amniotic Fluid Odor: None STAGES OF LABOR Stage 1 hr: 9 Stage 1 min: 47 Stage 2 hr: 0 Stage 2 min: 21 Stage 3 hr: 0 Stage 3 min: 2 Total Time in Labor hr: 10 Total Time in Labor min: 10 VAGINAL DELIVERY Episiotomy: None Laceration Extension: N/A Laceration Type: None Other Laceration: PERINEAL ABRASION Laceration Repair: Yes Initial Vag Sponge Count: 10 Final Vag Sponge Count: 10 Initial Vag Sharps Count: 1 Final Vag Sharps Count: 1 Sponge Count Correct: Yes; Vaginal Sweep Performed Sharps Count Correct: Yes BABY A INFORMATION Infant Delivery Date/Time: 04/14/2017 00:08 Method of Delivery: Vaginal Born in Route : No : N/A Forceps: N/A Vacuum Extraction: Successful Shoulder Dystocia : Yes ASSISTED DELIVERY BABY A Indication for Assisted Delivery: SUSPECTED MACROSOMIA Catheter Prior to Procedure: Yes Station Vacuum/Forcep Apply: +1 Position Vacuum/Forcep Apply: Left Occipital Anterior Vacuum Number of Pulls: 1 Vacuum Number of PopOffs: 0 Vacuum Maximum Pressure Obtained: 600 Reduce Pressure btwn Ctx: No Vacuum [employer] Officer: [employer] Total Time Vacuum Applied: 30 SECONDS SHOULDER DYSTOCIA BABY A Delivery of Head: 04/14/2017 00:05 Delivery Date/Time: 04/14/2017 00:08 Time Head to Delivery : 3.0 1st Intervention to Resolve: Suprapubic Pressure 2nd Intervention to Resolve: McRobert's Maneuver Verify NO Fundal Pressure: No Fundal Pressure Applie Arm Under Symphisis at Del: Left PRESENTATION/POSITION BABY A Presentation: Cephalic Cephalic Presentation: Vertex Vertex Position: Left Occipital Anterior Breech Presentation: N/A PLACENTA INFORMATION BABY A Placenta Delivery Time : 04/14/2017 00:10 Placenta Method of Delivery: Spontaneous Placenta Status: Delivered SCORES BABY A Heart Rate 1 min: >100 bpm Resp Effort 1 min: Slow, Irregular Reflex Irritability 1 min: Cough/Sneeze/Pulls Away Muscle Tone 1 min: Active Motion Color 1 min: Body [place], Extremit Blue Resuscitation Effort 1 min: Tactile Stimulation; PPV/NCPAP SCORE 1 MIN: 8 Heart Rate 5 min: >100 bpm Resp Effort 5 min: Good Cry Reflex Irritability 5 min: Cough/Sneeze/Pulls Away Muscle Tone 5 min: Active Motion Color 5 min: Body [place], Extremit Blue Resuscitation Effort 5 min: Tactile Stimulation; PPV/NCPAP SCORE 5 MIN: 9 INFORMATION BABY A Gestational Age at Delivery: 38.0 Gestational Status: Early Term- 37- 38.6 Weeks Outcome : Liveborn Infant Condition : Stable Sex: Male IDENTIFICATION/MEDS BABY A ID Band Number: [id number] ID Band Location: Right Leg; Left Arm Sensor Applied: Yes Sensor Number: [id number] Sensor Location : Cord Clamp Vitamin K Given : Aqu[place] 1 mg IM; Left Thigh Erythromycin Given: Given Both Eyes WEIGHT/LENGTH BABY A Infant Birthweight (gm): 3665 Infant Weight (lb): 8 Weight (oz): 1 Infant Length (in): 21.00 Length (cm): 53.34 CORD INFORMATION BABY A No. Cord Vessels: 3 Nuchal Cord : N/A Cord Blood Taken: Yes Suction: Mouth; Nose ASSESSMENT BABY A Complications: Shoulder Dystocia Physical Findings at Delivery: Within Normal Limits Infant Respirations: Appears Normal [employer]al [employer] Counselors/ALS Called : No Infant Care By: Jessie MOORE/Marquise GILLESPIE Transferred To: Remains with Mother
[2017-04-14 02:40] VITALS: BP 119/65; PULSE 76; RESP 20
[2017-04-14 04:45] VITALS: BP 102/56; PULSE 84; RESP 21
[2017-04-14] MEDS: IBUPROFEN 800 MG TAB PO SCH ×4 (05:50→23:32)
[2017-04-14 08:30] VITALS: BP 112/60; PULSE 70; RESP 18
[2017-04-14] MEDS: SENNA/DOCUSATE NA (8.6MG/50MG) TAB PO SCH ×2 (10:18→20:32)
[2017-04-14 11:30] LABS: BASOPHILS % 0.2 % (0.0-2.0); EOSINOPHILS # 0.1 10^3/ul (0.0-0.5); EOSINOPHILS % 0.6 % (0.0-7.0); HEMATOCRIT 35.3 % (37.0-47.0); HEMOGLOBIN 11.7 g/dl (12.0-16.0); LYMPHOCYTES # 1.7 10^3/ul (0.8-2.9); LYMPHOCYTES % 13.6 % (15.0-51.0); MEAN CORPUSCULAR HGB CONC 33.1 g/dl (32.0-37.0); MEAN CORPUSCULAR VOLUME 93.6 fl (82.0-101.0); MEAN PLATELET VOLUME 10.9 fl (7.4-10.4); MONOCYTE # 0.7 10^3/ul (0.3-0.9); MONOCYTES % 5.2 % (0.0-11.0); PLATELET COUNT 233 10^3/UL (140-415); RED BLOOD COUNT 3.77 10^6/ul (4.20-5.40); RED CELL DISTRIBUTION WIDTH 13.4 % (11.5-14.5); WHITE BLOOD COUNT 12.6 10^3/ul (4.8-10.8)
[2017-04-14 12:32] VITALS: BP 120/64; PULSE 84; RESP 18
--- NOTE | 2017-04-14 12:53 | QN ---
Documentation Comment PPD#1 is stable ,afebrile tolerates diet No Vb +BM +Voids VS stable Gen NAD Abd soft NT ND [place] No blood at perinium --->discharge plan tomorrow MARCELLA ANDRES M.D. Apr 14, 2017 12:53
[2017-04-14 16:00] VITALS: BP 111/65; PULSE 75; RESP 18
[2017-04-14 20:00] VITALS: BP 118/60; PULSE 70; RESP 18
[2017-04-15] VITALS: BP 121/64; PULSE 64; RESP 18
[2017-04-15 04:00] VITALS: BP 117/60; PULSE 68; RESP 18
[2017-04-15] MEDS: IBUPROFEN 800 MG TAB PO SCH ×4 (05:41→23:38)
[2017-04-15 08:00] VITALS: BP 112/60; PULSE 69; RESP 18
[2017-04-15] MEDS ORDERED: INFLUENZA VIRUS VACCINE 0.5 ML (DISPENSING) IM* ONE (09:00)
[2017-04-15] MEDS: SENNA/DOCUSATE NA (8.6MG/50MG) TAB PO SCH ×2 (09:20→21:48)
[2017-04-15 16:00] VITALS: BP 114/75; PULSE 86; RESP 18
[2017-04-15 20:00] VITALS: BP 102/60; PULSE 69; RESP 20
--- NOTE | 2017-04-15 22:02 | PD.PPDC ---
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
--- NOTE | 2017-04-15 22:04 | DS ---
Date/Time of Note Date/Time of Note DATE: 04/15/17 TIME: 22:03 Obstetrical Discharge Record Final Diagnosis Final Diagnosis: Term delivered Vaginal Delivery Obstetrical Delivery: Vacuum Extraction Complications Induction: Yes Condition on Discharge Physical Assessment Voiding: Yes Bowel Movement: Yes Breast: Soft, non-tender, Filling Fundus: Firm Calf Tenderness: No Patient Condition: Good ESTHER DEL CID MD Apr 15, 2017 22:04
[2017-04-16 04:46] VITALS: BP 110/60; PULSE 72; RESP 20
[2017-04-16] MEDS: IBUPROFEN 800 MG TAB PO SCH (05:35)
[2017-04-16 08:30] VITALS: BP 94/56; PULSE 58; RESP 18
[2017-04-16] MEDS ORDERED: DIPHTH/TET/ACEL PERTUSS (ADULT) 0.5 ML VIAL IM* ONE (09:00)
[2017-04-16] MEDS ORDERED: MEASLES,MUMPS,RUBELLA VACCINE INJ SC* ONE (09:00)
[2017-04-16] MEDS ORDERED: VARICELLA VACCINE LIVE/PF 1,350 UNIT/0.5 ML ML SC* ONE (09:00)
[2017-04-16] MEDS: SENNA/DOCUSATE NA (8.6MG/50MG) TAB PO SCH (10:13)
== END 2017-04-16 11:20 | disposition home or self-care (01) | DRG 775 ==
LOC: L-D 10:05 → PP1 04-14 02:30
PROVIDERS: ADMIT Obstetrics & Gynecology; ATTEND Obstetrics & Gynecology
PROC: 10D07Z6 Extraction of Products of Conception, Vacuum, Via Natural or Artificial Opening (ICD-10-PCS; principal; 2017-04-14)
PROC: 3E0P7VZ Introduction of Hormone into Female Reproductive, Via Natural or Artificial Opening (ICD-10-PCS; 2017-04-14)
DX: O99.824 Streptococcus B carrier state complicating childbirth (principal); O24.429 Gestational diabetes mellitus in childbirth, unspecified control; Z37.0 Single live birth; Z3A.39 39 weeks gestation of pregnancy
CPT/HCPCS: 62319; 82947; 82962; 85025; 85610; 85730; 86592; 86900; 86901; 87340; 88307; 90686; 90715; 90716; 99464; J0290; J2590; J3010; J7120